=== PATIENT | female | born 1990 | race Two or more races ===

== ENCOUNTER → 2018-01-31 | Outpatient (CLI) | payer BC, MEDICAID ==
[~2018-01-31] MED LIST: PREN-153 OR
[2018-01-31 11:12] LABS: Basophils # (auto) 0 uL; Basophils % (auto) 0.2 % (0.0-2.0); Eosinophils # (auto) 0.3 uL; Eosinophils % (auto) 2.4 % (0.0-7.0); Hematocrit 40.1 % (36.0-46.0); Hemoglobin 13.1 g/dL (12.2-16.2); Lymphocytes # (auto) 2.1 uL; Lymphocytes % (auto) 16.1 % (10.0-50.0); Mean Corpuscular Hemoglobin 27.3 pg (28.0-32.0); Mean Corpuscular Hgb Conc. 32.8 g/dL (32.0-36.0); Mean Corpuscular Volume 83.4 fL (80.0-100.0); Monocytes # (auto) 0.7 uL; Monocytes % (auto) 5.1 % (0.0-12.0); Neutrophils # (auto) 9.8 uL; Neutrophils % (auto) 76.2 % (37.0-80.0); Nucleated Red Blood Cells % 0.1 %; Platelet Count (auto) 404 10^3/uL (140-450); Red Cell Distribution Width 14.3 % (11.8-14.3); White Blood Cell 12.8 10^3/uL (4.4-10.8)
[2018-01-31 13:39] LABS: Alcohol, Urine < 3.0 mg/dL (0-5); Amphetamine Screen, Urine NEGATIVE (NEGATIVE); Barbiturate Scree,Urine NEGATIVE (NEGATIVE); Benzodiazephine Screen, Urine NEGATIVE (NEGATIVE); Cannabinoid Screen, Urine NEGATIVE (NEGATIVE); Cocaine Screen, Urine NEGATIVE (NEGATIVE); Opiate Scree,Urine NEGATIVE (NEGATIVE); Phencyclidine Screen, Urine NEGATIVE (NEGATIVE)
[2018-02-01 02:09] LABS: RPR Non Reactive (Non Reactive)
== END | disposition home or self-care (01) ==
LOC: LAB 10:37
PROVIDERS: ATTEND Obstetrics & Gynecology
DX: O98.319 Other infections with a predominantly sexual mode of transmission complicating pregnancy, unspecified trimester (principal); Z3A.00 Weeks of gestation of pregnancy not specified
CPT/HCPCS: 36415; 80307; 83036; 85025; 86592; 86703; 86762; 86850; 86900; 86901; 87086; 87340

== ENCOUNTER → 2018-06-01 | Outpatient (CLI) | payer BC, MEDICAID ==
[2018-06-01 10:16] LABS: Basophils # (auto) 0 uL; Basophils % (auto) 0.3 % (0.0-2.0); Eosinophils # (auto) 0.2 uL; Eosinophils % (auto) 1.6 % (0.0-7.0); Hematocrit 32.4 % (36.0-46.0); Hemoglobin 10.9 g/dL (12.2-16.2); Lymphocytes # (auto) 2.3 uL; Lymphocytes % (auto) 17.7 % (10.0-50.0); Mean Corpuscular Hemoglobin 27.9 pg (28.0-32.0); Mean Corpuscular Hgb Conc. 33.5 g/dL (32.0-36.0); Mean Corpuscular Volume 83.1 fL (80.0-100.0); Monocytes # (auto) 0.8 uL; Monocytes % (auto) 6.3 % (0.0-12.0); Neutrophils # (auto) 9.4 uL; Neutrophils % (auto) 74.1 % (37.0-80.0); Nucleated Red Blood Cells % 0.1 %; Platelet Count (auto) 336 10^3/uL (140-450); Red Cell Distribution Width 13.8 % (11.8-14.3); White Blood Cell 12.8 10^3/uL (4.4-10.8)
== END | disposition home or self-care (01) ==
LOC: LAB 09:27
PROVIDERS: ATTEND Obstetrics & Gynecology
DX: O99.810 Abnormal glucose complicating pregnancy (principal); Z3A.00 Weeks of gestation of pregnancy not specified
CPT/HCPCS: 36415; 82951; 83036; 85025

== ENCOUNTER → 2018-07-24 | Outpatient (CLI) | payer BC, MEDICAID ==
[2018-07-24 11:15] LABS: Basophils # (auto) 0 uL; Basophils % (auto) 0.2 % (0.0-2.0); Eosinophils # (auto) 0.2 uL; Eosinophils % (auto) 1.7 % (0.0-7.0); Hematocrit 33.2 % (36.0-46.0); Hemoglobin 11.2 g/dL (12.2-16.2); Lymphocytes # (auto) 2.4 uL; Lymphocytes % (auto) 17.3 % (10.0-50.0); Mean Corpuscular Hemoglobin 27.2 pg (28.0-32.0); Mean Corpuscular Hgb Conc. 33.7 g/dL (32.0-36.0); Mean Corpuscular Volume 80.8 fL (80.0-100.0); Monocytes % (auto) 7.6 % (0.0-12.0); Neutrophils % (auto) 73.2 % (37.0-80.0); Platelet Count (auto) 324 10^3/uL (140-450); Red Blood Cells 4.11 10^6/uL (4.0-5.20); Red Cell Distribution Width 13.7 % (11.8-14.3); White Blood Cell 13.6 10^3/uL (4.4-10.8)
[2018-07-25 06:05] LABS: RPR Non Reactive (Non Reactive)
== END | disposition home or self-care (01) ==
LOC: LAB 10:43
PROVIDERS: ATTEND Obstetrics & Gynecology
DX: O23.599 Infection of other part of genital tract in pregnancy, unspecified trimester (principal); Z3A.00 Weeks of gestation of pregnancy not specified
CPT/HCPCS: 36415; 85025; 86592; 87081

== ENCOUNTER → 2018-08-01 | Outpatient (CLI) | payer BC, MEDICAID ==
[2018-08-02 05:06] LABS: RPR Non Reactive (Non Reactive)
== END | disposition home or self-care (01) ==
LOC: LAB 10:51
PROVIDERS: ATTEND Obstetrics & Gynecology
DX: Z20.2 Contact with and (suspected) exposure to infections with a predominantly sexual mode of transmission (principal)
CPT/HCPCS: 86592; 86703

== ENCOUNTER 2018-08-08 14:40 | Observation (INO) | payer BC, MEDICAID ==
[2018-08-08 15:53] LABS: Basophils # (auto) 0 uL; Eosinophils # (auto) 0.2 uL; Hematocrit 31.8 % (36.0-46.0); Monocytes # (auto) 0.8 uL; Monocytes % (auto) 6.1 % (0.0-12.0); Red Blood Cells 4.01 10^6/uL (4.0-5.20)
[2018-08-08 15:56] LABS: Basophils % (auto) 0.2 % (0.0-2.0); Eosinophils % (auto) 1.4 % (0.0-7.0); Hemoglobin 10.6 g/dL (12.2-16.2); Lymphocytes # (auto) 2.1 uL; Lymphocytes % (auto) 15.3 % (10.0-50.0); Mean Corpuscular Hemoglobin 26.4 pg (28.0-32.0); Mean Corpuscular Hgb Conc. 33.3 g/dL (32.0-36.0); Mean Corpuscular Volume 79.2 fL (80.0-100.0); Neutrophils # (auto) 10.4 uL; Platelet Count (auto) 320 10^3/uL (140-450); Red Cell Distribution Width 14.1 % (11.8-14.3); White Blood Cell 13.5 10^3/uL (4.4-10.8)
[2018-08-08 16:09] LABS: Albumin 2.4 g/dL (3.4-5.0); Calcium 8.3 mg/dL (8.5-10.1); INR 0.9 (0.9-1.15); Partial Thromboplastin Time 24.9 sec (23.78-33.04); Potassium 3.4 mmol/L (3.5-5.1); Prothrombin Time 9.7 sec (9.27-12.13); Uric Acid 4.6 mg/dL (2.6-6.0)
[2018-08-08 16:11] LABS: BUN/Creatinine Ratio 16.4; Bilirubin, Total 0.8 mg/dL (0.2-1.0); Total Protein 6.3 g/dL (6.4-8.2)
[2018-08-08 16:15] LABS: Urine Bacteria MOD /hpf (None Seen); Urine Blood TRACE /uL (Negative); Urine Mucus FEW (None Seen); Urine Specific Gravity 1.024 (1.001-1.035); Urine WBC 160 /hpf (0 - 5)
== END 2018-08-08 17:05 | disposition home or self-care (01) | DRG 833 ==
LOC: LDRP 14:40
PROVIDERS: ADMIT Specialist; ATTEND Specialist
DX: O26.893 Other specified pregnancy related conditions, third trimester (principal); R03.0 Elevated blood-pressure reading, without diagnosis of hypertension; Z3A.38 38 weeks gestation of pregnancy
CPT/HCPCS: 36415; 59025; 76818; 80053; 81001; 81002; 84550; 85025; 85362; 85379; 85610; 85730; G0378

== ENCOUNTER 2018-08-09 19:00 | Observation (INO) | payer BC, MEDICAID ==
[2018-08-09 20:54] LABS: Protein, Urine 28.1 mg/dL (0.0-11.9)
[2018-08-09 21:10] LABS: 24 Hr. Total Protein, Urine 168.6 mg/24 Hr (<149.1)
== END 2018-08-09 19:38 | disposition home or self-care (01) | DRG 833 ==
LOC: LDRP 19:00
PROVIDERS: ADMIT Obstetrics & Gynecology; ATTEND Obstetrics & Gynecology
DX: O24.419 Gestational diabetes mellitus in pregnancy, unspecified control (principal); Z3A.00 Weeks of gestation of pregnancy not specified
CPT/HCPCS: 84156; G0378

== ENCOUNTER 2018-08-14 15:35 | Observation (INO) | payer BC, MEDICAID ==
[2018-08-14 16:49] LABS: Urine Bacteria NONE SEEN /hpf (None Seen); Urine Blood 1+ /uL (Negative); Urine Mucus FEW (None Seen); Urine Specific Gravity 1.029 (1.001-1.035); Urine WBC 41 /hpf (0 - 5); Urine WBC Clumps PRESENT /hpf (None Seen)
[2018-08-14 16:51] LABS: Basophils # (auto) 0 uL; Eosinophils # (auto) 0.2 uL; White Blood Cell 13.8 10^3/uL (4.4-10.8)
[2018-08-14 16:52] LABS: Basophils % (auto) 0.2 % (0.0-2.0); Eosinophils % (auto) 1.6 % (0.0-7.0); Hematocrit 32.7 % (36.0-46.0); Hemoglobin 10.6 g/dL (12.2-16.2); Lymphocytes # (auto) 2.2 uL; Mean Corpuscular Hgb Conc. 32.4 g/dL (32.0-36.0); Mean Corpuscular Volume 80.1 fL (80.0-100.0); Monocytes # (auto) 1.2 uL; Monocytes % (auto) 8.5 % (0.0-12.0); Neutrophils # (auto) 10.2 uL; Neutrophils % (auto) 73.7 % (37.0-80.0); Platelet Count (auto) 343 10^3/uL (140-450); Red Blood Cells 4.09 10^6/uL (4.0-5.20); Red Cell Distribution Width 14.5 % (11.8-14.3)
[2018-08-14 17:01] LABS: Albumin 2.4 g/dL (3.4-5.0); BUN/Creatinine Ratio 14.8; Calcium 8.3 mg/dL (8.5-10.1); Potassium 3.8 mmol/L (3.5-5.1); Uric Acid 4.6 mg/dL (2.6-6.0)
[2018-08-14 17:05] LABS: INR 0.87 (0.9-1.15); Partial Thromboplastin Time 24.5 sec (23.78-33.04); Prothrombin Time 9.4 sec (9.27-12.13)
[2018-08-14 17:10] LABS: Bilirubin, Total 0.8 mg/dL (0.2-1.0); Total Protein 6.5 g/dL (6.4-8.2)
== END 2018-08-14 17:55 | disposition home or self-care (01) | DRG 833 ==
LOC: LDRP 15:35
PROVIDERS: ADMIT Obstetrics & Gynecology; ATTEND Obstetrics & Gynecology
DX: O41.03X0 Oligohydramnios, third trimester, not applicable or unspecified (principal); Z3A.38 38 weeks gestation of pregnancy
CPT/HCPCS: 36415; 59025; 76818; 80053; 81001; 81002; 84550; 85025; 85362; 85379; 85610; 85730; G0378

== ENCOUNTER 2018-08-15 09:35 | Observation (INO) | payer BC, MEDICAID | END 2018-08-15 12:05 | disposition home or self-care (01) | DRG 833 | LOC: LDRP 09:35 | PROVIDERS: ADMIT Obstetrics & Gynecology; ATTEND Obstetrics & Gynecology | DX: O24.419 Gestational diabetes mellitus in pregnancy, unspecified control (principal); Z3A.00 Weeks of gestation of pregnancy not specified | CPT/HCPCS: 59025; 76818; 81002; G0378 ==

== ENCOUNTER 2018-08-16 08:15 | Observation (INO) | payer BC, MEDICAID | END 2018-08-16 11:00 | disposition home or self-care (01) | DRG 833 | LOC: LDRP 08:15 | PROVIDERS: ADMIT Obstetrics & Gynecology; ATTEND Obstetrics & Gynecology | DX: O24.419 Gestational diabetes mellitus in pregnancy, unspecified control (principal); Z3A.38 38 weeks gestation of pregnancy | CPT/HCPCS: 59025; 76815; 81002; G0378 ==

== ENCOUNTER 2020-05-22 20:47 | Observation (INO) | payer BC, MEDICAID ==
[2020-05-23 01:04] LABS: Urine Bacteria FEW /hpf (None Seen); Urine Blood 1+ /uL (Negative); Urine Mucus FEW (None Seen); Urine Specific Gravity 1.023 (1.001-1.035); Urine WBC 17 /hpf (0 - 5)
== END 2020-05-22 21:44 | disposition home or self-care (01) ==
LOC: UNDOADMOB 20:47 → LDRP 20:47 → UNDODISOB 21:44
PROVIDERS: ADMIT Obstetrics & Gynecology; ATTEND Obstetrics & Gynecology
DX: O60.02 Preterm labor without delivery, second trimester (principal); Z3A.23 23 weeks gestation of pregnancy
CPT/HCPCS: 59025; 81001; 81002; G0378

== ENCOUNTER 2020-07-26 09:00 | Observation (INO) | payer MEDICAID ==
[~2020-07-26 09:00] MED LIST changes: -PREN-153 OR; +PREN1TAB71 OR
[2020-07-26] MEDS ORDERED: ASPI-231 PO (10:43)
[2020-07-26] MEDS ORDERED: ZINC100T5 PO (10:43)
== END 2020-07-26 11:20 | disposition home or self-care (01) ==
LOC: LDRP 09:00
PROVIDERS: ADMIT Obstetrics & Gynecology; ATTEND Obstetrics & Gynecology
DX: O98.513 Other viral diseases complicating pregnancy, third trimester (principal); U07.1 COVID-19; O40.3XX0 Polyhydramnios, third trimester, not applicable or unspecified; Z3A.31 31 weeks gestation of pregnancy
CPT/HCPCS: 59025; 76818; 81002; G0378; U0003

== ENCOUNTER 2020-07-28 08:45 | Observation (INO) | payer MEDICAID ==
[~2020-07-28 08:45] MED LIST changes: +ASPI-231 PO; +ZINC100T5 PO
== END 2020-07-28 10:43 | disposition home or self-care (01) ==
LOC: LDRP 08:45
PROVIDERS: ADMIT Specialist; ATTEND Specialist
DX: O98.513 Other viral diseases complicating pregnancy, third trimester (principal); U07.1 COVID-19; O40.3XX0 Polyhydramnios, third trimester, not applicable or unspecified; Z3A.32 32 weeks gestation of pregnancy
CPT/HCPCS: 59025; 76818; 81002; G0378

== ENCOUNTER 2020-07-31 12:15 | Observation (INO) | payer MEDICAID | END 2020-07-31 13:35 | disposition home or self-care (01) | LOC: LDRP 12:15 | PROVIDERS: ADMIT Specialist; ATTEND Specialist | DX: O40.3XX0 Polyhydramnios, third trimester, not applicable or unspecified (principal); Z3A.32 32 weeks gestation of pregnancy | CPT/HCPCS: 59025; 76818; 81002; G0378 ==

== ENCOUNTER 2020-08-04 08:00 | Observation (INO) | payer MEDICAID | END 2020-08-04 10:10 | disposition home or self-care (01) | LOC: LDRP 08:00 | PROVIDERS: ADMIT Obstetrics & Gynecology; ATTEND Obstetrics & Gynecology | DX: O98.513 Other viral diseases complicating pregnancy, third trimester (principal); U07.1 COVID-19; O40.3XX0 Polyhydramnios, third trimester, not applicable or unspecified; Z3A.33 33 weeks gestation of pregnancy | CPT/HCPCS: 59025; 76818; 81002; G0378 ==

== ENCOUNTER 2020-08-07 08:12 | Observation (INO) | payer MEDICAID ==
[2020-08-07] MEDS ORDERED: HYDR250I6 IM (08:46)
== END 2020-08-07 10:37 | disposition home or self-care (01) ==
LOC: LDRP 08:12
PROVIDERS: ADMIT Obstetrics & Gynecology; ATTEND Obstetrics & Gynecology
DX: O98.513 Other viral diseases complicating pregnancy, third trimester (principal); U07.1 COVID-19; O40.3XX0 Polyhydramnios, third trimester, not applicable or unspecified; Z3A.33 33 weeks gestation of pregnancy
CPT/HCPCS: 59025; 76818; 81002; G0378

== ENCOUNTER 2020-08-11 08:22 | Observation (INO) | payer MEDICAID ==
[~2020-08-11] VITALS: Ht 157.5 cm; Wt 96.2 kg
[~2020-08-11 08:22] MED LIST changes: -ASPI-231 PO; +ASPI1TAB20 PO; +HYDR250I6 IM
== END 2020-08-11 10:02 | disposition home or self-care (01) ==
LOC: LDRP 08:22
PROVIDERS: ADMIT Obstetrics & Gynecology; ATTEND Obstetrics & Gynecology
DX: O40.3XX0 Polyhydramnios, third trimester, not applicable or unspecified (principal); Z20.822 Contact with and (suspected) exposure to COVID-19; Z3A.34 34 weeks gestation of pregnancy
CPT/HCPCS: 59025; 76818; 81002; G0378; U0003

== ENCOUNTER 2020-08-14 10:23 | Observation (INO) | payer MEDICAID | END 2020-08-14 14:51 | disposition home or self-care (01) | LOC: LDRP 10:23 | PROVIDERS: ADMIT Obstetrics & Gynecology; ATTEND Obstetrics & Gynecology | DX: O40.3XX0 Polyhydramnios, third trimester, not applicable or unspecified (principal); Z3A.34 34 weeks gestation of pregnancy | CPT/HCPCS: 59025; 76818; 81002; G0378 ==

== ENCOUNTER 2020-08-18 13:13 | Observation (INO) | payer MEDICAID ==
[~2020-08-18] VITALS: Ht 154.9 cm; Wt 96.2 kg
[2020-08-18] MEDS ORDERED: TERBUTALINE SULFATE 1 MG/ML 1ML VIAL SC SCH (14:00)
[2020-08-18] MEDS ORDERED: TERBUTALINE SULFATE 1 MG/ML 1ML VIAL SC ONE (14:09)
[2020-08-18] MEDS ORDERED: BETAMETHASONE ACET (30mg/5ml) 5ml Vial 6mg/ml IM ONE (15:02)
== END 2020-08-18 15:20 | disposition home or self-care (01) ==
LOC: LDRP 13:13
PROVIDERS: ADMIT Obstetrics & Gynecology; ATTEND Obstetrics & Gynecology
DX: O40.3XX0 Polyhydramnios, third trimester, not applicable or unspecified (principal); Z3A.35 35 weeks gestation of pregnancy
CPT/HCPCS: 59025; 76818; 81002; 96372; G0378; J0702; J3105

== ENCOUNTER 2020-08-19 15:00 | Observation (INO) | payer MEDICAID ==
[~2020-08-19] VITALS: Ht 62 cm; Wt 96.2 kg
[~2020-08-19 15:00] MED LIST changes: +ASPI-231 PO; -ASPI1TAB20 PO
[2020-08-19] MEDS ORDERED: BETAMETHASONE ACET (6MG/ML) 5ML VIAL IM ONE (15:30)
== END 2020-08-19 16:25 | disposition home or self-care (01) ==
LOC: LDRP 15:00
PROVIDERS: ADMIT Obstetrics & Gynecology; ATTEND Obstetrics & Gynecology
DX: O40.3XX0 Polyhydramnios, third trimester, not applicable or unspecified (principal); O60.03 Preterm labor without delivery, third trimester; Z3A.35 35 weeks gestation of pregnancy
CPT/HCPCS: 59025; 81002; 96372; G0378; J0702

== ENCOUNTER 2020-08-21 08:05 | Observation (INO) | payer MEDICAID ==
[~2020-08-21] VITALS: Ht 157.5 cm; Wt 96.2 kg
[2020-08-21] MEDS ORDERED: NIF10C GT (09:14)
== END 2020-08-21 10:10 | disposition home or self-care (01) ==
LOC: LDRP 08:05
PROVIDERS: ADMIT Obstetrics & Gynecology; ATTEND Obstetrics & Gynecology
DX: O40.3XX0 Polyhydramnios, third trimester, not applicable or unspecified (principal); O60.03 Preterm labor without delivery, third trimester; Z3A.35 35 weeks gestation of pregnancy
CPT/HCPCS: 59025; 76818; 81002; G0378

== ENCOUNTER 2020-08-25 08:20 | Observation (INO) | payer MEDICAID ==
[~2020-08-25 08:20] MED LIST changes: +NIF10C GT
== END 2020-08-25 09:45 | disposition home or self-care (01) ==
LOC: LDRP 08:20
PROVIDERS: ADMIT Specialist; ATTEND Specialist
DX: O60.03 Preterm labor without delivery, third trimester (principal); O40.3XX0 Polyhydramnios, third trimester, not applicable or unspecified; Z3A.36 36 weeks gestation of pregnancy
CPT/HCPCS: 59025; 76818; 81002; G0378

== ENCOUNTER 2020-08-28 08:31 | Observation (INO) | payer MEDICAID | END 2020-08-28 09:15 | disposition home or self-care (01) | LOC: LDRP 08:31 | PROVIDERS: ADMIT Specialist; ATTEND Specialist | DX: O40.3XX0 Polyhydramnios, third trimester, not applicable or unspecified (principal); O60.03 Preterm labor without delivery, third trimester; Z3A.36 36 weeks gestation of pregnancy | CPT/HCPCS: 59025; 76818; 81002; G0378 ==

== ENCOUNTER 2020-08-31 09:04 | Observation (INO) | payer MEDICAID ==
[~2020-08-31] VITALS: Ht 157.5 cm; Wt 99.8 kg
[~2020-08-31 09:04] MED LIST changes: -HYDR250I6 IM
== END 2020-08-31 10:45 | disposition home or self-care (01) ==
LOC: LDRP 09:04
PROVIDERS: ADMIT Obstetrics & Gynecology; ATTEND Obstetrics & Gynecology
DX: O40.3XX0 Polyhydramnios, third trimester, not applicable or unspecified (principal); O60.03 Preterm labor without delivery, third trimester; Z3A.37 37 weeks gestation of pregnancy
CPT/HCPCS: 59025; 76818; 81002; G0378

== ENCOUNTER 2020-09-04 11:31 | Observation (INO) | payer MEDICAID ==
[~2020-09-04] VITALS: Ht 162.6 cm; Wt 99.8 kg
== END 2020-09-04 12:18 | disposition home or self-care (01) ==
LOC: LDRP 11:31
PROVIDERS: ADMIT Specialist; ATTEND Specialist
DX: O40.3XX0 Polyhydramnios, third trimester, not applicable or unspecified (principal); Z3A.37 37 weeks gestation of pregnancy
CPT/HCPCS: 59025; 76818; 81002; 82948; G0378

== ENCOUNTER 2020-09-07 13:12 | Observation (INO) | payer MEDICAID ==
[~2020-09-07] VITALS: Ht 157.5 cm; Wt 96.2 kg
== END 2020-09-07 15:01 | disposition home or self-care (01) ==
LOC: LDRP 13:12
PROVIDERS: ADMIT Specialist; ATTEND Specialist
DX: Z34.93 Encounter for supervision of normal pregnancy, unspecified, third trimester (principal); Z3A.38 38 weeks gestation of pregnancy
CPT/HCPCS: 59025; 76818; 81002; G0378

== ENCOUNTER 2020-09-08 10:41 | Observation (INO) | payer MEDICAID ==
[~2020-09-08 10:41] MED LIST changes: -ASPI-231 PO
[2020-09-08 11:30] LABS: Basophils # (auto) 0 10 ^3/uL (0-0.2); Basophils % (auto) 0.2 % (0.0-2.0); Eosinophils # (auto) 0.1 10 ^3/uL (0-0.8); Eosinophils % (auto) 1.1 % (0.0-7.0); Hematocrit 34.7 % (36.0-46.0); Hemoglobin 11.8 g/dL (12.2-16.2); Lymphocytes # (auto) 1.6 10 ^3/uL (0.4-5.4); Lymphocytes % (auto) 13.3 % (10.0-50.0); Mean Corpuscular Hemoglobin 29.4 pg (28.0-32.0); Mean Corpuscular Volume 86.6 fL (80.0-100.0); Monocytes # (auto) 0.9 10 ^3/uL (0-1.3); Monocytes % (auto) 7.3 % (0.0-12.0); Neutrophils # (auto) 9.5 10 ^3/uL (1.6-8.6); Neutrophils % (auto) 78.1 % (37.0-80.0); Nucleated Red Blood Cells % 0.1 %; Platelet Count (auto) 340 10^3/uL (140-450); Red Blood Cells 4.01 10^6/uL (4.0-5.20); Red Cell Distribution Width 13.3 % (11.8-14.3); White Blood Cell 12.1 10^3/uL (4.4-10.8)
[2020-09-08 11:39] LABS: Albumin 2.3 g/dL (3.4-5.0); Calcium 8.8 mg/dL (8.5-10.1); Potassium 3.6 mmol/L (3.5-5.1)
[2020-09-08 11:42] LABS: Bilirubin, Total 0.7 mg/dL (0.2-1.0); Total Protein 6.8 g/dL (6.4-8.2); Uric Acid 5.1 mg/dL (2.6-6.0)
[2020-09-08 11:46] LABS: INR 0.92 (0.9-1.15); Partial Thromboplastin Time 25.9 sec (23.0-31.2)
[2020-09-08 12:37] LABS: Urine Bacteria FEW /hpf (None Seen); Urine Blood TRACE /uL (Negative); Urine Specific Gravity 1.006 (1.001-1.035); Urine WBC 6 /hpf (0 - 5)
== END 2020-09-08 13:15 | disposition home or self-care (01) ==
LOC: LDRP 10:41
PROVIDERS: ADMIT Specialist; ATTEND Specialist
DX: O13.3 Gestational [pregnancy-induced] hypertension without significant proteinuria, third trimester (principal); Z3A.38 38 weeks gestation of pregnancy
CPT/HCPCS: 36415; 59025; 80053; 81001; 81002; 84550; 85025; 85362; 85379; 85610; 85730; G0378

== ENCOUNTER 2020-09-10 10:04 | Observation (INO) | payer MEDICAID ==
[~2020-09-10] VITALS: Ht 154.9 cm; Wt 86.2 kg
[~2020-09-10 10:04] MED LIST changes: -NIF10C GT
[2020-09-10 11:09] LABS: Protein, Urine 15.9 mg/dL (0.0-11.9)
[2020-09-10] MEDS: TERBUTALINE SULFATE 1 MG/ML 1ML VIAL SC SCH ×2 (12:18→12:55)
== END 2020-09-10 13:39 | disposition home or self-care (01) ==
LOC: LDRP 10:04
PROVIDERS: ADMIT Obstetrics & Gynecology; ATTEND Obstetrics & Gynecology
DX: O40.3XX0 Polyhydramnios, third trimester, not applicable or unspecified (principal); O13.3 Gestational [pregnancy-induced] hypertension without significant proteinuria, third trimester; Z3A.38 38 weeks gestation of pregnancy
CPT/HCPCS: 59025; 76818; 81002; 82570; 84156; G0378; J3105; 96372

== ENCOUNTER 2020-09-15 04:12 | Inpatient (IN) | payer MEDICAID ==
[2020-09-15] VITALS (16 sets, daily range): BP systolic 115–133; BP diastolic 63–93
[~2020-09-15] VITALS: Ht 154.9 cm; Wt 98.9 kg
[2020-09-15] MEDS ORDERED: LACTATED RINGER'S 1,000 ML IV ONE (04:30)
[2020-09-15] MEDS ORDERED: ceFAZolin 1GM/50ML 50 ML IV ONE (04:30)
[2020-09-15] MEDS ORDERED: LACTATED RINGER'S 1,000 ML IV SCH ×2 (04:30→15:00)
[2020-09-15 05:12] LABS: Basophils # (auto) 0.1 10 ^3/uL (0-0.2); Basophils % (auto) 0.4 % (0.0-2.0); Eosinophils # (auto) 0.2 10 ^3/uL (0-0.8); Eosinophils % (auto) 1.3 % (0.0-7.0); Hematocrit 35.3 % (36.0-46.0); Lymphocytes % (auto) 15.5 % (10.0-50.0); Mean Corpuscular Hemoglobin 29.7 pg (28.0-32.0); Mean Corpuscular Hgb Conc. 33.9 g/dL (32.0-36.0); Mean Corpuscular Volume 87.5 fL (80.0-100.0); Monocytes % (auto) 7.7 % (0.0-12.0); Neutrophils # (auto) 9.6 10 ^3/uL (1.6-8.6); Neutrophils % (auto) 75.1 % (37.0-80.0); Nucleated Red Blood Cells % 0.1 %; Platelet Count (auto) 335 10^3/uL (140-450); Red Blood Cells 4.03 10^6/uL (4.0-5.20); Red Cell Distribution Width 14.1 % (11.8-14.3); White Blood Cell 12.8 10^3/uL (4.4-10.8)
[2020-09-15 05:23] LABS: Urine Bacteria FEW /hpf (None Seen); Urine Blood TRACE /uL (Negative); Urine Specific Gravity 1.024 (1.001-1.035); Urine Sperm PRESENT /hpf (None Seen); Urine WBC 53 /hpf (0 - 5)
[2020-09-15 05:25] LABS: Albumin 2.3 g/dL (3.4-5.0); Calcium 8.8 mg/dL (8.5-10.1); Potassium 3.8 mmol/L (3.5-5.1)
[2020-09-15 05:29] LABS: BUN/Creatinine Ratio 15.2; Bilirubin, Total 0.6 mg/dL (0.2-1.0); Total Protein 6.9 g/dL (6.4-8.2)
[2020-09-15 05:32] LABS: INR 0.91 (0.9-1.15); Partial Thromboplastin Time 27.1 sec (23.0-31.2)
[2020-09-15] MEDS ORDERED: MORPHINE SULF(PF) 0.5MG/ML 10ML VIAL ONE (07:01)
[2020-09-15] MEDS ORDERED: fentaNYL CITRATE 100 MCG/2 ML VL ONE (07:01)
[2020-09-15] MEDS ORDERED: ePHEDrine SULFATE 50 MG/ML AMP ONE (07:02)
[2020-09-15] MEDS ORDERED: ONDANSETRON HCL 4 MG/2 ML VIAL ONE (07:02)
[2020-09-15] MEDS ORDERED: GLYCOPYRROLATE 0.2 MG/ML 1ML VIAL ONE (07:02)
[2020-09-15] MEDS ORDERED: oxyTOCIN 10 UNIT/ML 10ML VIAL ONE (07:02)
[2020-09-15] MEDS ORDERED: TETRACAINE 1% INJ 2 ML VIAL IJ ONE (07:04)
[2020-09-15] MEDS ORDERED: SUCCINYLCHOLINE CHLORIDE 20 MG/ML 10ML VIAL IV ONE (07:05)
[2020-09-15] MEDS ORDERED: BUPIVACAINE 0.75% INJ 10ML MPV SDV IJ ONE (07:06)
[2020-09-15] MEDS ORDERED: BUPIVACAINE/DEXTROSE MPF 0.75% 2 ML AMP IT ONE (07:07)
[2020-09-15] MEDS ORDERED: MIDAZOLAM HCL 1MG/1ML-2 ML VIAL ONE (08:00)
[2020-09-15] MEDS ORDERED: ACETAMINOPHEN IV 1000 MG/100ML (10MG/ML) IV PRN (08:15)
[2020-09-15] MEDS ORDERED: GUM (CHEWING) 1 GUM CHEW CHEW ONE (08:15)
[2020-09-15] MEDS ORDERED: ONDANSETRON HCL 4 MG/2 ML VIAL IV PRN ×4 (08:15→09:00)
[2020-09-15] MEDS ORDERED: LACT. RINGERS/OXYTOCIN 20UNITS 1,000 ML IV ONE ×2 (08:15→08:30)
[2020-09-15] MEDS ORDERED: MORPHINE SULFATE 4 MG/ML SYR/VIAL IV PRN ×2 (08:15→08:30)
[2020-09-15] MEDS ORDERED: ceFAZolin 1GM/50ML 50 ML IV SCH (08:30)
[2020-09-15] MEDS ORDERED: KETAMINE HCL 10 ML ONE (08:46)
[2020-09-15] MEDS ORDERED: KETOROLAC TROMETH 30 MG/ML 1ML VIAL IV PRN (09:00)
[2020-09-15] MEDS ORDERED: HYDROmorphone HCL 2 MG/ML VL IV PRN (09:00)
[2020-09-15] MEDS ORDERED: DexAMETHasone SOD PHOS 10MG/1ML VIAL INJ IV PRN (09:00)
[2020-09-15] MEDS ORDERED: diphenhdrAMINE HCL 50 MG/1 ML VL IV PRN (09:00)
[2020-09-15] MEDS ORDERED: NALOXONE HCL 0.4 MG/ML VIAL IV PRN (09:00)
[2020-09-15] MEDS ORDERED: NALBUPHINE HCL 10 MG/1ml INJECTION SUBCUT ONE (09:00)
[2020-09-15] MEDS ORDERED: KETOROLAC TROMETH 30 MG/ML 1ML VIAL ONE (09:05)
[2020-09-15] MEDS ORDERED: HYDROmorphone HCL 2 MG/ML VL ONE (09:08)
[2020-09-15] MEDS: ceFAZolin 1GM/50ML 50 ML IV SCH ×2 (14:45→22:50)
[2020-09-15 22:06] LABS: Basophils # (auto) 0.1 10 ^3/uL (0-0.2); Eosinophils # (auto) 0.1 10 ^3/uL (0-0.8); Eosinophils % (auto) 0.8 % (0.0-7.0); Hematocrit 34.1 % (36.0-46.0); Hemoglobin 11.5 g/dL (12.2-16.2); Lymphocytes # (auto) 1.8 10 ^3/uL (0.4-5.4); Lymphocytes % (auto) 13.4 % (10.0-50.0); Mean Corpuscular Hemoglobin 29.1 pg (28.0-32.0); Mean Corpuscular Hgb Conc. 33.7 g/dL (32.0-36.0); Mean Corpuscular Volume 86.4 fL (80.0-100.0); Monocytes % (auto) 7.5 % (0.0-12.0); Neutrophils # (auto) 10.7 10 ^3/uL (1.6-8.6); Neutrophils % (auto) 77.3 % (37.0-80.0); Platelet Count (auto) 294 10^3/uL (140-450); Red Blood Cells 3.94 10^6/uL (4.0-5.20); Red Cell Distribution Width 13.9 % (11.8-14.3); White Blood Cell 13.8 10^3/uL (4.4-10.8)
[2020-09-16] VITALS (10 sets, daily range): BP systolic 108–121; BP diastolic 55–67
[2020-09-16] MEDS ORDERED: HYDROmorphone HCL 2 MG/ML VL IV PRN (04:00)
[2020-09-16] MEDS: ceFAZolin 1GM/50ML 50 ML IV SCH (06:57)
[2020-09-16 07:07] LABS: RPR Non Reactive (Non Reactive)
[2020-09-16] MEDS ORDERED: BISACODYL 10 MG RECT SUPP PR PRN (07:15)
[2020-09-16] MEDS ORDERED: HYDROcodone-ACET 5/325MG TAB PO PRN (07:15)
[2020-09-16 07:39] LABS: Basophils # (auto) 0 10 ^3/uL (0-0.2); Basophils % (auto) 0.3 % (0.0-2.0); Eosinophils # (auto) 0.1 10 ^3/uL (0-0.8); Eosinophils % (auto) 0.6 % (0.0-7.0); Hematocrit 30.8 % (36.0-46.0); Hemoglobin 10.8 g/dL (12.2-16.2); Lymphocytes # (auto) 1.6 10 ^3/uL (0.4-5.4); Lymphocytes % (auto) 14.5 % (10.0-50.0); Mean Corpuscular Hemoglobin 30.4 pg (28.0-32.0); Mean Corpuscular Volume 86.8 fL (80.0-100.0); Monocytes # (auto) 0.9 10 ^3/uL (0-1.3); Monocytes % (auto) 7.9 % (0.0-12.0); Neutrophils # (auto) 8.6 10 ^3/uL (1.6-8.6); Neutrophils % (auto) 76.7 % (37.0-80.0); Nucleated Red Blood Cells % 0.1 %; Platelet Count (auto) 251 10^3/uL (140-450); Red Blood Cells 3.55 10^6/uL (4.0-5.20); Red Cell Distribution Width 13.7 % (11.8-14.3); White Blood Cell 11.2 10^3/uL (4.4-10.8)
[2020-09-16] MEDS: HYDROcodone-ACET 5/325MG TAB PO PRN ×2 (09:14→16:46)
[2020-09-16] MEDS: DOCUSATE CALCIUM 240 MG CAP PO SCH (10:14)
[2020-09-16] MEDS: SIMETHICONE 80 MG CHEWABLE TABLET PO SCH ×3 (12:32→22:57)
[2020-09-16] MEDS: IBUPROFEN 800 MG TAB PO PRN ×2 (13:13→21:10)
[2020-09-16 22:08] LABS: Basophils # (auto) 0 10 ^3/uL (0-0.2); Basophils % (auto) 0.3 % (0.0-2.0); Eosinophils # (auto) 0.1 10 ^3/uL (0-0.8); Eosinophils % (auto) 1.1 % (0.0-7.0); Hematocrit 31.7 % (36.0-46.0); Lymphocytes # (auto) 1.6 10 ^3/uL (0.4-5.4); Lymphocytes % (auto) 13.2 % (10.0-50.0); Mean Corpuscular Hemoglobin 29.9 pg (28.0-32.0); Mean Corpuscular Hgb Conc. 34.6 g/dL (32.0-36.0); Mean Corpuscular Volume 86.3 fL (80.0-100.0); Monocytes % (auto) 8.5 % (0.0-12.0); Neutrophils # (auto) 9.1 10 ^3/uL (1.6-8.6); Neutrophils % (auto) 76.9 % (37.0-80.0); Platelet Count (auto) 298 10^3/uL (140-450); Red Blood Cells 3.67 10^6/uL (4.0-5.20); White Blood Cell 11.8 10^3/uL (4.4-10.8)
[2020-09-17] MEDS: HYDROcodone-ACET 5/325MG TAB PO PRN ×3 (01:24→19:59)
[2020-09-17 03:00] VITALS: BP 110/60
[2020-09-17] MEDS: SIMETHICONE 80 MG CHEWABLE TABLET PO SCH ×4 (05:33→23:12)
[2020-09-17] MEDS: IBUPROFEN 800 MG TAB PO PRN (05:33)
[2020-09-17 07:30] VITALS: BP 105/44
[2020-09-17] MEDS: DOCUSATE CALCIUM 240 MG CAP PO SCH (09:14)
[2020-09-17 11:05] VITALS: BP 103/45
[2020-09-17 15:01] VITALS: BP 127/62
[2020-09-17 19:30] VITALS: BP 129/67
[2020-09-17 23:00] VITALS: BP 119/69
[2020-09-18] MEDS: IBUPROFEN 800 MG TAB PO PRN ×2 (00:24→11:29)
[2020-09-18 03:00] VITALS: BP 126/72
[2020-09-18] MEDS: SIMETHICONE 80 MG CHEWABLE TABLET PO SCH ×2 (05:40→11:55)
[2020-09-18 07:00] VITALS: BP 126/63
== END 2020-09-18 12:12 | disposition home or self-care (01) | DRG 540 ==
LOC: LDRP 04:12
PROVIDERS: ADMIT Obstetrics & Gynecology; ATTEND Obstetrics & Gynecology
PROC: 0UL70CZ Occlusion of Bilateral Fallopian Tubes with Extraluminal Device, Open Approach (ICD-10-PCS; 2020-09-15)
PROC: 10D00Z1 Extraction of Products of Conception, Low, Open Approach (ICD-10-PCS; principal; 2020-09-15 07:42)
DX: O34.211 Maternal care for low transverse scar from previous cesarean delivery (principal); Z30.2 Encounter for sterilization; Z37.0 Single live birth; R71.0 Precipitous drop in hematocrit
CPT/HCPCS: 36415; 59025; 80053; 81001; 84112; 85025; 85610; 85730; 86592; 86850; 86900; 86901; 94762; 96360; 96361; 96374; 96375; G0378; J0131; J0330; J0690; J1885; J2250; J2405; J2590; J3490